=== PATIENT | male | born 2000 | race Hispanic/Latino ===

== ENCOUNTER 2020-03-20 22:41 | Emergency (ER) | payer SELFPAY ==
[2020-03-21] MEDS ORDERED: LIDOCAINE HCL 2% JELLY 5 ML ONE (01:09)
[2020-03-21] MEDS ORDERED: LEVOFLOXACIN 500 MG TABLET ONE (01:10)
[2020-03-21] MEDS ORDERED: IBUPROFEN 600 MG TABLET ONE (01:10)
[2020-03-21] MEDS ORDERED: ACETAMINOPHEN EXTRA STRENGTH 500 MG TABLET ONE (01:11)
== END 2020-03-21 01:27 | disposition home or self-care (01) ==
LOC: EDH 22:41
DX: K64.9 Unspecified hemorrhoids (principal)